=== PATIENT | female | born 1950 | race Caucasian/White ===

== ENCOUNTER → 2020-02-17 14:18 | Outpatient (CLI) | payer MEDICARE, OTHER, SELFPAY ==
--- NOTE | 2020-02-17 | DI.RAD.S_ITS ---
PROCEDURE: XR KNEE RT 3V INDICATIONS: RIGHT KNEE PAIN TECHNIQUE: 3 views of the knee were acquired. COMPARISON: None. FINDINGS: Bones: No fractures or dislocations. No suspicious bony lesions. The knee joint spaces appear well-preserved. Soft tissues: No significant joint effusion. No suspicious soft tissue calcifications. IMPRESSION: No significant abnormality is seen on these plain films. If there is point tenderness (or other clinical suspicion for a fracture not seen on these images) then a dedicated CT could be considered for further evaluation, as clinically appropriate. If there is strong clinical suspicion for internal derangement of this joint, please consider a dedicated MRI for further evaluation (assuming that there is no contraindication to MRI). Dictated by: Nakul Antonio M.D. on 02/17/2020 at 14:59 Approved by: Nakul Antonio M.D. on 02/17/2020 at 15:00
== END ==
PROVIDERS: PCP Family Medicine; Referring Provider Family Medicine; Visit Provider Family Medicine
DX: S89.91XA Unspecified injury of right lower leg, initial encounter (principal); M25.561 Pain in right knee; X58.XXXA Exposure to other specified factors, initial encounter
CPT/HCPCS: 73562

== ENCOUNTER → 2020-02-25 12:31 | Outpatient (CLI) | payer MEDICARE, OTHER, SELFPAY ==
--- NOTE | 2020-02-25 | DI.MRI.S_ITS ---
PROCEDURE: MR KNEE RT WO CON INDICATIONS: Unspecified injury of right lower leg TECHNIQUE: Noncontrast sagittal PD fast spin echo and T2 fast spin echo with fat saturation, sagittal 3-D FLASH with fat saturation; coronal T1 spin echo and PD fast spin echo with fat saturation, and axial PD fast spin echo with fat saturation through the knee. COMPARISON: [facility], CR, XR KNEE RT 3V, 02/17/2020, 14:19. FINDINGS: Image quality: Excellent. Menisci: The medial and lateral menisci demonstrate normal morphology and internal signal. The meniscal root ligaments appear intact. Cruciate ligaments: The anterior cruciate ligament is thickened and irregular likely secondary to partial tear. The posterior cruciate ligament is intact. Medial structures: There is grade 2-3 sprain of the medial collateral ligament. There is thickening of the semimembranosus tendon insertions, consistent with partial tear/sprain. The meniscocapsular junction appear intact. Visualized portions of the pes anserinus tendons appear normal. No abnormal bursal fluid. Lateral structures: The lateral collateral ligament and the biceps femoris tendon appear intact. The popliteus tendon appears intact. Iliotibial band appears normal. Anterior structures: The quadriceps and patellar tendons appear intact. Patellar alignment is normal. No femoral trochlear dysplasia or ventral trochlear prominence. No edema in the infrapatellar fat pad. Bones and cartilage: There is bone contusions in the lateral tibial plateau. The cartilage of the medial and lateral femorotibial compartments, as well as the patellofemoral compartment, appears normal in thickness. Joint space: There is moderate knee joint effusion. Small Obando's cyst. Normal appearing synovial plicae are incidentally noted. Probably intra-articular body in the suprapatellar knee joint. IMPRESSION: 1. Grade 2-3 sprain of the medial collateral ligament. 2. Possible partial tear of ACL. 3. Bone contusions of the lateral tibial plateau. 4. Moderate knee joint effusion. 5. Small Obando's cyst. 6. Probable intra-articular body in the suprapatellar knee joint. Dictated by: Saurabh Dyer M.D. on 02/25/2020 at 14:32 Approved by: Saurabh Dyer M.D. on 02/25/2020 at 17:57
== END ==
PROVIDERS: PCP Family Medicine; Referring Provider Family Medicine; Visit Provider Family Medicine
DX: S83.411A Sprain of medial collateral ligament of right knee, initial encounter (principal); S80.01XA Contusion of right knee, initial encounter; M25.461 Effusion, right knee; M71.21 Synovial cyst of popliteal space [Baker], right knee; X58.XXXA Exposure to other specified factors, initial encounter
CPT/HCPCS: 73721

== ENCOUNTER → 2021-03-23 12:51 | Outpatient (CLI) | payer MEDICARE, SELFPAY ==
--- NOTE | 2021-03-23 12:54 | DI.MG.S_ITS ---
BILATERAL DIGITAL SCREENING MAMMOGRAM 3D/2D WITH CAD: 03/23/2021 CLINICAL: Routine screening. Comparison is made to exams dated: 08/13/2013 mammogram, 10/13/2011 mammogram, and 02/21/2008 mammogram - [facility]. The tissue of both breasts is predominantly fatty. Current study was also evaluated with a Computer Aided Detection (CAD) system. No significant masses, calcifications, or other findings are seen in either breast. There has been no significant interval change. IMPRESSION: NEGATIVE There is no mammographic evidence of malignancy. A 1 year screening mammogram is recommended. This exam was interpreted at Station ID: [id number]. NOTE: For mammograms, a report in lay terms will be sent to the patient. Approximately 15% of breast malignancies will not be visualized mammographically. In the management of a palpable breast mass, a negative mammogram must not discourage biopsy of a clinically suspicious lesion. Electronically Signed By: Aletha rendon/faiza:03/23/2021 17:16:31 letter sent: Normal Exam ACR BI-RADS Category 1: Negative [id number]
--- NOTE | 2021-03-23 12:55 | DI.RAD.S_ITS ---
PROCEDURE: XR DEXA AXIAL SKELETON INDICATIONS: Asymptomatic menopausal state COMPARISON: None. FINDINGS: This blank DEXA report has been sent in error by the PACS system. The correct and complete report will be forthcoming in 1-2 days. Thank you for your patience and understanding. Dictated by: Betsy Betancur MD, PhD on 03/24/2021 at 7:01 Approved by: Betsy Betancur MD, PhD on 03/24/2021 at 7:01
== END ==
PROVIDERS: PCP Family Medicine; Referring Provider Family Medicine; Visit Provider Family Medicine
DX: Z12.31 Encounter for screening mammogram for malignant neoplasm of breast (principal); Z78.0 Asymptomatic menopausal state
CPT/HCPCS: 77063; 77067; 77080

== ENCOUNTER → 2022-03-31 13:03 | Outpatient (CLI) | payer MEDICARE, SELFPAY ==
[2022-03-31 19:08] LABS: Cholesterol 285 mg/dL (140-199); Glucose 104 mg/dL (80-110); HDL Cholesterol 63 mg/dL (40-60); LDL Cholesterol Calculated 186 mg/dL (<100); Triglycerides 179 mg/dL (35-150)
== END ==
PROVIDERS: PCP Family Medicine; Visit Provider Family Medicine
DX: Z13.1 Encounter for screening for diabetes mellitus (principal); Z13.220 Encounter for screening for lipoid disorders
CPT/HCPCS: 80061; 82947

== ENCOUNTER → 2022-07-19 11:36 | Outpatient (CLI) | payer MEDICARE, SELFPAY ==
[2022-07-19 21:27] LABS: Cholesterol 196 mg/dL (140-199); HDL Cholesterol 53 mg/dL (40-60); LDL Cholesterol Calculated 95 mg/dL (<100); Triglycerides 240 mg/dL (35-150)
== END ==
PROVIDERS: PCP Family Medicine; Visit Provider Family Medicine
DX: E78.5 Hyperlipidemia, unspecified (principal)
CPT/HCPCS: 80061

== ENCOUNTER → 2023-07-09 11:41 | Outpatient (CLI) | payer MEDICARE, SELFPAY ==
[2023-07-09 20:38] LABS: Cholesterol 197 mg/dL (140-199); HDL Cholesterol 66 mg/dL (40-60); LDL Cholesterol Calculated 103 mg/dL (<100); Triglycerides 141 mg/dL (35-150)
== END ==
PROVIDERS: PCP Family Medicine; Visit Provider Family Medicine
DX: E78.2 Mixed hyperlipidemia (principal)
CPT/HCPCS: 80061

== ENCOUNTER → 2023-08-06 09:31 | Outpatient (CLI) | payer MEDICARE, SELFPAY ==
[2023-08-06 20:10] LABS: Cholesterol 212 mg/dL (140-199); Glucose 90 mg/dL (80-110); HDL Cholesterol 55 mg/dL (40-60); LDL Cholesterol Calculated 107 mg/dL (<100); Triglycerides 250 mg/dL (35-150)
[2023-08-06 20:58] LABS: Hep C Virus Ab w/Reflex Quant NEGATIVE s/c (NEGATIVE)
== END ==
PROVIDERS: PCP Family Medicine; Visit Provider Family Medicine
DX: Z13.1 Encounter for screening for diabetes mellitus (principal); Z13.220 Encounter for screening for lipoid disorders; Z11.59 Encounter for screening for other viral diseases
CPT/HCPCS: 80061; 82947; 86803

== ENCOUNTER → 2024-10-14 | Outpatient (CLI) | payer MEDICARE, SELFPAY ==
--- NOTE | 2024-10-14 15:12 | DI.MG.S_ITS ---
BILATERAL DIGITAL SCREENING MAMMOGRAM 3D/2D WITH CAD: 10/14/2024 CLINICAL: Routine screening. Comparison is made to exams dated: 03/23/2021 mammogram - [facility], 08/13/2013 mammogram, and 10/13/2011 mammogram - [facility]. The breasts are almost entirely fatty (category a/<25% glandular tissue). Current study was also evaluated with a Computer Aided Detection (CAD) system. No significant masses, calcifications, or other findings are seen in either breast. There has been no significant interval change. IMPRESSION: NEGATIVE There is no mammographic evidence of malignancy. A 1 year screening mammogram is recommended. Based on the Tyrer Cuzick model (a risk assessment model) the patient's lifetime risk is 3.6% and her 10 year risk is 2.9%. According to the ACR, ACS, and NCCN guidelines, an annual breast MRI exam along with mammogram is recommended if the patient's lifetime risk is 20% or greater. This exam was interpreted at Station ID: [id number]. NOTE: For mammograms, a report in lay terms will be sent to the patient. Approximately 15% of breast malignancies will not be visualized mammographically. In the management of a palpable breast mass, a negative mammogram must not discourage biopsy of a clinically suspicious lesion. Electronically Signed By: Fallon Eduardo M.D., Ph.D. /faiza:10/16/2024 20:32:58 letter sent: Normal Exam ACR BI-RADS Category 1: Negative
== END ==
LOC: MAMMO 15:12
PROVIDERS: PCP Family Medicine; Referring Provider Family Medicine; Visit Provider Family Medicine
DX: Z12.31 Encounter for screening mammogram for malignant neoplasm of breast (principal); R92.323 Mammographic fibroglandular density, bilateral breasts
CPT/HCPCS: 77063; 77067

== ENCOUNTER 2024-11-14 11:55 | Day surgery (SDC) | payer MEDICARE, SELFPAY ==
--- NOTE | 2024-11-14 | PATH_ITS ---
[facility] Accession Number: [id number] No. of containers..03 Tissue . 01 Material submitted: . PART A: colon - CECAL POLYPS PART B: colon - TRANSVERSE COLON POLYP PART C: colon - DESCENDING COLON POLYPS . 01 Diagnosis: A. CECAL POLYPS: Tubular adenomas. . B. TRANSVERSE COLON POLYP: Tubular adenoma. . C. DESCENDING COLON POLYPS: Tubular adenomas. [facility] 11/17/2024 1500 Local . 01 Electronically signed: . Mayank Bradley MD, PhD, Pathologist NPI- [id number] . 01 Gross description: . A. Received in formalin, labeled with two patient identifiers and 1. Cecal polyp, are three padilla soft tissue fragments ranging from 0.4 x 0.4 x 0.3 cm to 0.8 x 0.4 x 0.4 cm. The largest fragment is inked blue and bisected. All submitted in cassette A1. B. Received in formalin, labeled with two patient identifiers and 2. Transverse colon polyp, are three padilla soft tissue fragments measuring 0.2-0.6 cm in greatest dimension. Submitted in cassette B1. C. Received in formalin, labeled with two patient identifiers and 3. Descending colon polyps, are two padilla soft tissue fragments measuring 0.5-0.6 cm in greatest dimension. Submitted in cassette C1. ([id number]) /FRR 11/15/2024 1825 Local . 01 Pathologist provided ICD-10: D12.6 . 01 CPT . 164846, [id number], [id number] Specimen Comment: A courtesy copy of this report has been sent to [facility] Pathology Performed at: [address] [address], [place], [place] [id number] MD Moses Lujan MD Phone: [phone]
[2024-11-14 12:38] VITALS: BP 130/83; PULSE 82; RESP 16; TEMP 37; O2SAT 95
--- NOTE | 2024-11-14 13:10 | PM.HP.IH.1 ---
History of Present Illness History of Present Illness Date Patient Seen: 11/14/24 Time Patient Seen: 13:10 Chief complaint: SDC Narrative: 74-year-old white female last colonoscopy over 10 years ago. [facility] Medical History (Updated 11/14/24 @ 13:12 by Madi Simpson MD) Colon cancer screening Herpes (~1975) Abnormal Pap smear of cervix Colon polyps (~2004) Adhesive capsulitis of left shoulder Pneumonia LGSIL (low grade squamous intraepithelial dysplasia) Acute conjunctivitis of right eye Unspecified superficial injury of right knee, initial encounter (~02/16/20) Encounter for general adult medical examination without abnormal findings Postmenopausal Screening for breast cancer Screening for cervical cancer Surgical History (Updated 04/11/22 @ 20:19 by Tatyana James) Anesthesia History of bunionectomy (~2021) History of blepharoplasty (~2020) History of tonsillectomy (~1958) H/O colonoscopy Family History (Updated 04/11/22 @ 20:20 by Tatyana James) Father Hypertension Mother History of emphysema Social History Smoking Status: Never smoker alcohol intake: current Meds Home Medications and Allergies Home Medications Medication Instructions Recorded Confirmed Type atorvastatin 10 mg tablet (Lipitor) 10 mg PO BEDTIME #90 tabs 10/09/24 11/14/24 Rx bupropion HCl 150 mg 24 hr tablet, 150 mg PO QAM #90 tabs 10/30/24 11/14/24 Rx extended release (Wellbutrin XL) tirzepatide (weight loss) 2.5 2.5 mg (0.5 mL) SUBCUT QWEEK #2 mL 10/30/24 11/14/24 Rx mg/0.5 mL subcutaneous pen injector (Zepbound) Allergies Allergy/AdvReac Type Severity Reaction Status Date / Time No Known Drug Allergies Allergy Verified 11/14/24 12:30 Review of Systems Review of Systems ROS: Yes All systems reviewed with the patient and are negative except as otherwise documented Exam Vital Signs (past 8 hours): - 11/14/24 12:38 Temperature 98.6 F Pulse Rate 82 Respiratory Rate 16 Blood Pressure 130/83 Pulse Oximetry 95 Oxygen Delivery Method Room Air Oxygen Delivery Method Room Air Narrative Exam Narrative: Gen: NAD, sitting comfortably in bed, appears well HEENT: Sclera are anicteric, head is normocephalic and atraumatic, trachea is midline. CV: RRR, no JVD Resp: clear to auscultation bilaterally, equal chest wall movement bilaterally Abd: soft, nontender, normoactive bowel sounds Ext: no edema, full range of motion Neuro: Cranial nerves II-XII grossly intact, no focal deficits Skin: No erythema or ecchymosis Assessment & Plan Assessment and plan (1) Colon cancer screening: Status: Acute Assessment & Plan narrative: Patient presents for colonoscopy Risks, benefits, alternatives to colonoscopy explained, including but not limited to bowel perforation or other serious complication requiring surgery at less than 1 in 5000 colonoscopies, abdominal pain, cramping or bleeding and less than 1% of colonoscopies, and the chances that we find a diagnosis that would require further intervention of about 2%. Patient agrees to proceed. Time-Based Coding :: [TOTAL MINUTES] spent with patient and on the chart (including review of chart, obtaining history, exam, reviewing outside data, placing orders, documenting exam and treatment plan, and counseling patient) on [DATE]. [employer] Hotel Reservationist Document charge(s): No
--- NOTE | 2024-11-14 13:41 | PM.OP.COLON ---
Operative Date/Time/Diagnoses Date of procedure: 11/14/24 Time of procedure: 13:41 Pre-op diagnosis: Colon screening Post-op diagnosis: other (6 polyps) Procedure & Clinicians Study performed: Colonoscopy with cold snare polypectomy of polyps, 3 in the cecum, 1 transverse, 2 descending Same procedure as scheduled: Yes Indications: Colon screening Surgeon: Madi Simpson Procedure Notes SCOAP/Timeout: Performed Procedure in detail: Time-out was performed. Mac was induced. Patient was placed in left lateral decubitus position. The perineum was inspected without any gross abnormality. Lubricated pediatric colonoscope was inserted and advanced to the cecum. The terminal ileum was intubated. The colonoscope was withdrawn slowly inspecting the circumference of the colon. There were 3 cecal polyps, 1 transverse polyp and 2 descending colon polyps. These were all removed with cold snare polypectomy completely, and retrieved. Very small polyps may have been missed, prep quality was adequate. Retroflexed view of the rectum showed small, non prolapsed nonbleeding internal hemorrhoids. The scope was withdrawn the patient was taken to PACU in good condition. Scope withdrawal time: 18 Sedation minutes: 24 Findings: polyp(s) Specimen(s): other (1. Cecal polyps x3 2. Transverse colon polyp 3. Descending colon polyp x2) Complications: none Impression: Multiple polyps Post-procedure Recommendations: Colonoscopy in 3 years Follow up: as needed Disposition: PACU
[2024-11-14 13:44] VITALS: BP 97/63; PULSE 66; RESP 23; TEMP 36.7; O2SAT 95
[2024-11-14 13:49] VITALS: BP 102/64; PULSE 71; RESP 16; O2SAT 94
[2024-11-14 13:54] VITALS: BP 109/64; PULSE 65; RESP 13; TEMP 36.3; O2SAT 94
[2024-11-14 13:58] VITALS: BP 110/69; PULSE 64; RESP 12; O2SAT 94
== END 2024-11-14 14:10 | disposition home or self-care (01) ==
PROVIDERS: PCP Family Medicine; Referring Provider Surgery; Visit Provider Surgery
PROC: 0DJD8ZZ Inspection of Lower Intestinal Tract, Via Natural or Artificial Opening Endoscopic (ICD-10-PCS; CPT 45378; principal; 2024-11-14 13:15)
DX: Z12.11 Encounter for screening for malignant neoplasm of colon (principal); D12.0 Benign neoplasm of cecum; D12.4 Benign neoplasm of descending colon; D12.3 Benign neoplasm of transverse colon; K64.8 Other hemorrhoids
CPT/HCPCS: 45385; J2704

== ENCOUNTER → 2024-12-23 10:17 | Outpatient (CLI) | payer MEDICARE, SELFPAY ==
[2024-12-23 20:13] LABS: BUN Creatinine Ratio 19.5 (6-22); Blood Urea Nitrogen 15 mg/dL (7-17); Calcium 9.3 mg/dL (8.4-10.2); Carbon Dioxide 26 mmol/L (22-32); Chloride 106 mmol/L (98-107); Cholesterol 177 mg/dL (140-199); Estimated Glomerular Filt Rate > 60 mL/min (>60); Glucose 92 mg/dL (80-110); HDL Cholesterol 48 mg/dL (40-60); HEMOLYSIS 30 (0-50); LDL Cholesterol Calculated 95 mg/dL (<100); Potassium 4.3 mmol/L (3.4-5.1); Sodium 139 mmol/L (137-145); Triglycerides 169 mg/dL (35-150)
[2024-12-23 20:19] LABS: Add Manual Diff / Slide Review NO; Basophils Absolute Auto 0 /uL (0-100); Basophils Percent Auto 0.5 % (0-2); Eosinophils Absolute Auto 100 /uL (0-450); Hematocrit 40.5 % (36-46); Hemoglobin 13.8 g/dL (12.0-16.0); Lymphocytes Absolute Auto 1100 /uL (1100-4500); Lymphocytes Percent Auto 31.3 % (25-40); Mean Corpuscular HGB Conc 34.1 % (30-36); Mean Corpuscular Hemoglobin 32.3 PG (26-34); Mean Corpuscular Volume 94.7 fL (80-100); Monocytes Absolute Auto 400 /uL (0-900); Monocytes Percent Auto 11.2 % (3-14); Neutrophils Absolute Auto 1900 /uL (1500-7000); Platelet Count 210 X10^3/uL (150-400); Red Blood Cell Count 4.27 X10^6/uL (4.0-5.2); Red Cell Distribution Width 12.6 % (11.6-14.8); White Blood Cell Count 3.6 X10^3/uL (4.5-11.0)
== END ==
PROVIDERS: PCP Family Medicine; Visit Provider Family Medicine
DX: E78.2 Mixed hyperlipidemia (principal); F32.9 Major depressive disorder, single episode, unspecified; Z68.30 Body mass index [BMI] 30.0-30.9, adult
CPT/HCPCS: 80048; 80061; 85025